=== PATIENT | female | born 1955 | race Hispanic/Latino ===

== ENCOUNTER → 2019-11-22 | Outpatient (CLI) | payer MEDICARE ==
[~2019-11-22] MED LIST: ASPI-1012 PO; HYDR-4457 PO; HYDR12.54 PO; LOSA50TA64 PO; METF-444 PO; METO50TA18 PO; SERT100T12 PO
== END | disposition home or self-care (01) ==
LOC: RAH 07:33
PROVIDERS: ATTEND Family Medicine
DX: M25.411 Effusion, right shoulder (principal)
CPT/HCPCS: 73221